=== PATIENT | female | born 1965 | race Caucasian/White ===

== ENCOUNTER 2021-10-31 15:04 | Inpatient (IN) | payer OTHER ==
[~2021-10-31] VITALS: Ht 175.3 cm; Wt 85.5 kg
[~2021-10-31 15:04] MED LIST: COZAAR100 MG PO; FENOFIBRATE160 MG PO; LEVOTHYROXINE200 MC1 PO; METFORMIN HCL1000 MG PO; PROTONIX 40MG T40 MG PO; TRIAMTERENE-HC1 EACH PO; TRILEPTAL150 MG PO; VENLAFAXINE HC150 MG PO; VITAMIN D35000 UNI1 PO; ZOCOR20 MG PO
[2021-10-31 16:03] LABS: BASOPHIL 0.8 % (0-2); EOSINOPHIL 2.1 % (0-5); HCT 36.8 % (37.0-47.0); HGB 12.8 g/dl (12.5-16.0); LYMPHOCYTE 19.7 % (15-48); MCH 29.2 pg (25.0-31.0); MCHC 34.8 g/dL (32.0-36.0); MCV 83.8 fL (78.0-100.0); MPV 8.9 fL (6.0-9.5); NEUTROPHIL 63.1 % (41-80); NRBC 0; PLT 311 K/uL (150-400); RBC 4.39 M/uL (4.20-5.40); RDW 12.4 % (11.5-14.0); WBC 7.2 K/uL (4.0-10.5)
[2021-10-31 16:07] LABS: INR 0.99 (0.9-1.2); PROTHROMBIN TIME 12.5 SECONDS (11.8-13.4); PTT 31.7 SECONDS (24.4-34.7)
[2021-10-31 16:13] LABS: ALBUMIN 4.4 g/dL (3.4-5.0); BILIRUBIN - TOTAL 0.4 mg/dL (0.2-1.0); BUN/CREAT RATIO (CALC) 19.1 RATIO; CREATININE 1.1 mg/dL (0.51-0.95); GLOBULIN (CALCULATION) 3.5 g/dL; POTASSIUM 3.5 mmol/L (3.5-5.1); TOTAL PROTEIN 7.9 g/dL (6.4-8.2)
[2021-10-31 16:59] LABS: BILIRUBIN NEGATIVE (NEGATIVE); BLOOD NEGATIVE Ery/uL (NEGATIVE); CLARITY CLEAR (CLEAR); COLOR YELLOW (YELLOW); GLUCOSE (U) NORMAL (NORMAL); LEUKOCYTES NEGATIVE Leu/uL (NEGATIVE); NITRITE NEGATIVE (NEGATIVE); PROTEIN NEGATIVE (NEGATIVE)
[2021-10-31 21:00] LABS: CHOLESTEROL 150 mg/dL (<200); HDL 56 mg/dL (40-60); LDL - DIRECT 79 mg/dL (<100); TRIGLYCERIDES 143 mg/dL (<150)
[2021-11-01 03:29] LABS: BASOPHIL 0.8 % (0-2); HCT 33.3 % (37.0-47.0); HGB 11.6 g/dl (12.5-16.0); LYMPHOCYTE 30.4 % (15-48); MCH 29.6 pg (25.0-31.0); MCHC 34.8 g/dL (32.0-36.0); MCV 84.9 fL (78.0-100.0); MONOCYTE 14.3 % (0-12); MPV 8.9 fL (6.0-9.5); NRBC 0; PLT 249 K/uL (150-400); RBC 3.92 M/uL (4.20-5.40); RDW 12.6 % (11.5-14.0); WBC 6.2 K/uL (4.0-10.5)
[2021-11-01 04:34] LABS: ALBUMIN 3.5 g/dL (3.4-5.0); ALKALINE PHOSHATASE 85 U/L (46-116); ALT 27 U/L (14-59); AST 23 U/L (15-37); BILIRUBIN - TOTAL 0.3 mg/dL (0.2-1.0); BUN 19 mg/dL (7-18); BUN/CREAT RATIO (CALC) 21.1 RATIO; CHLORIDE 93 mmol/L (98-107); CO2 (BICARBONATE) 29 mmol/L (21-32); GLOBULIN (CALCULATION) 3.1 g/dL; GLUCOSE 99 mg/dL (74-106); LDH 129 U/L (81-234); MAGNESIUM 1.6 mg/dL (1.8-2.4); PHOSPHORUS 3.7 mg/dL (2.6-4.7); POTASSIUM 3.3 mmol/L (3.5-5.1); TOTAL PROTEIN 6.6 g/dL (6.4-8.2)
[2021-11-01 04:41] LABS: C-REACTIVE PROTEIN <0.20 mg/dL (<=0.90)
[2021-11-01 04:59] LABS: RETICULOCYTE COUNT 1.7 % (1.0-2.0)
[2021-11-01] MEDS ORDERED: NORVASC5 MG PO (07:50)
[2021-11-01 08:49] LABS: BUN/CREAT RATIO (CALC) 21.2 RATIO; CREATININE 0.8 mg/dL (0.51-0.95); POTASSIUM 3.5 mmol/L (3.5-5.1)
[2021-11-01 09:22] LABS: IRON % SATURATION 14.5 %SAT (20-50)
== END 2021-11-01 10:34 | disposition home or self-care (01) | DRG 641 ==
LOC: FER 15:04 → FTCU 19:16
PROVIDERS: Emergency Medicine; Nurse Practitioner; ADMIT Family Medicine
DX: E87.1 Hypo-osmolality and hyponatremia (principal); Z20.822 Contact with and (suspected) exposure to COVID-19; I10 Essential (primary) hypertension; E11.9 Type 2 diabetes mellitus without complications; E03.9 Hypothyroidism, unspecified; F32.A Depression, unspecified; G89.29 Other chronic pain; T50.2X5A Adverse effect of carbonic-anhydrase inhibitors, benzothiadiazides and other diuretics, initial encounter; Z90.49 Acquired absence of other specified parts of digestive tract; Z79.84 Long term (current) use of oral hypoglycemic drugs; Z79.899 Other long term (current) drug therapy
CPT/HCPCS: 36415; 71045; 80048; 80053; 80061; 81003; 82728; 83540; 83550; 83605; 83615; 83735; 83880; 83930; 83935; 84100; 84145; 84300; 85025; 85610; 85730; 86140; 93005; 94762; J1650; J3475; J7030; U0002